=== PATIENT | male | born 1960 | race Caucasian/White ===

== ENCOUNTER → 2019-07-14 08:47 | Outpatient (BNVA) | payer BC, SELFPAY | PROVIDERS: Family Provider Nurse Practitioner Family; PCP Family Medicine; Visit Provider Urology | DX: N20.9 Urinary calculus, unspecified (principal); N39.9 Disorder of urinary system, unspecified; N40.1 Benign prostatic hyperplasia with lower urinary tract symptoms | CPT/HCPCS: 81001 ==

== ENCOUNTER → 2020-01-13 08:35 | Outpatient (BNVA) | payer BC, SELFPAY | PROVIDERS: Family Provider Nurse Practitioner Family; PCP Family Medicine; Visit Provider Urology | DX: N40.1 Benign prostatic hyperplasia with lower urinary tract symptoms (principal) | CPT/HCPCS: 81001 ==

== ENCOUNTER → 2020-01-24 16:37 | Outpatient (BNVA) | payer BC, SELFPAY | PROVIDERS: Family Provider Nurse Practitioner Family; PCP Family Medicine; Visit Provider Family Medicine | DX: E78.2 Mixed hyperlipidemia (principal); M10.9 Gout, unspecified | CPT/HCPCS: 80053; 80061; 84550; 85025 ==

== ENCOUNTER 2020-05-12 10:00 | Outpatient (CLI) | payer BC, SELFPAY ==
--- NOTE | 2020-05-12 10:45 | FL_ITS ---
WS: [id number] UPPER GI WITH AIR TECHNICAL: Double contrast upper GI with thin and thick barium FLUOROSCOPY TIME: 4.0 minutes CLINICAL INFORMATION: K21.00 - Gastro-esophageal reflux disease with esophagitis, without bleeding COMPARISON: None. FINDINGS: Swallowing: Normal. Esophagus: Moderate dysmotility with delayed emptying. Filling of the fundoplication wrap suggests pa rtial breakdown or loosening with mild slippage and small recurrent hiatal hernia above the diaphragm . No evidence of esophageal stricture or mass. Gastroesophageal reflux: Mild reflux to the mid and distal esophagus in the supine position Stomach: Double contrast stomach is normal. Normal stomach emptying. Duodenum: Normal. Other findings: None. FL/FL upper GI w air* [id number] IMPRESSION: 1. Moderate esophageal dysmotility with delayed emptying. Mild reflux esophagi tis in the distal esophagus 2. Barium contrast filling of the fundoplication wrap suggests partial breakdo wn or loosening with mild slippage and small recurrent hiatal hernia above the diaphragm. This can be further evaluated with CT abdomen 3. No evidence of high-grade esophageal stricture or mass. 4. Mild reflux is present into the mid and distal esophagus in the supine posi tion
== END 2020-05-12 10:01 | disposition home or self-care (01) ==
LOC: RADWPI 10:06
PROVIDERS: PCP Family Medicine; Visit Provider Surgery
DX: K21.00 Gastro-esophageal reflux disease with esophagitis, without bleeding (principal)
CPT/HCPCS: 74246

== ENCOUNTER → 2020-06-02 13:55 | Outpatient (BNVA) | payer BC, SELFPAY | PROVIDERS: PCP Family Medicine; Visit Provider Surgery | DX: Z01.812 Encounter for preprocedural laboratory examination (principal); Z20.828 Contact with and (suspected) exposure to other viral communicable diseases | CPT/HCPCS: 87635 ==

== ENCOUNTER 2020-06-07 09:19 | Day surgery (SDC) | payer BC, SELFPAY ==
[2020-06-05 13:28] VITALS: BMI 27.1
[2020-06-07 10:33] VITALS: BP 113/80; PULSE 63; RESP 18; TEMP 36.4; O2SAT 98
--- NOTE | 2020-06-07 10:35 | W.PM.OPSUD ---
Surgery/Procedure H&P Update DATE OF PROCEDURE: June 07, 2020 DATE H&P PERFORMED: 05/18/20 H&P UPDATE INFORMATION: I have reviewed H&P completed within last 30 days, I have examined patient prior to procedure and No changes to prior documentation PREOP DIAGNOSIS: Epigastric pain PRIMARY INDICATION FOR PROCEDURE: The same PLANNED PROCEDURE: Operation Date: 06/07/20 10:45 Proposed Procedures p EGD 25053 k21.00(Not Applicable) - Andres Hernandez MD
[2020-06-07] MEDS: sodium chloride 0.9% 1,000 ML 30 ML IV (10:37)
--- NOTE | 2020-06-07 10:46 | P.ANESASSM_ITS ---
Pre-Anesthetic Assessment Pre-Anesthetic Assessment: Height/Weight: Height 1.83 m Weight 90.718 kg Temp Pulse Resp BP Pulse Ox 97.5 F L 63 18 113/80 98 06/07/20 10:33 06/07/20 10:33 06/07/20 10:33 06/07/20 10:33 06/07/20 10:33 Preop Diagnosis: Epigastric pain Proposed Procedure: Operation Date: 06/07/20 10:45 Proposed Procedures p EGD 37517 k21.00(Not Applicable) - Andres Hernandez MD Familial anesthetic complications: Hypothermia after a laparoscopic surgery, however has done fine subsequently (dontae) Was Beta Mart taken within 24 hours: N/A Last intake: Intake Last Liquid Date 06/06/20 Last Liquid Time 21:00 Last Solid Date 06/06/20 Last Solid Time 18:00 Social: Social History: No alcohol and No tobacco Comment: former smoker - quit 1992 Exam: Pre-Anes Outpt Exam: alert, oriented x 3, clear to auscultation bilaterally and regular rate & rhythm Airway: Cervical ROM: WNL MP: 3 Dentition: Full Additional comments: rogel Pulmonary: Pulmonary: COPD CV/HEM: CV/HEM: CHF and HTN Comments: very active - moves [place] Hx states CHF but he states he had an echo and his PCP told him his heart was stronger than a 40 year old's GI: GI: GERD Comments: kailey fundoplication Metabolic: Metabolic: Hyperlipidemia Neuropsych: Neuropsych: Anxiety Anesthetic Plan: ASA status: 3 Anesthesia: MAC Risk of > 500 ml blood loss (7ml/kg in children): No Meds/Allergies Current Medications: Current Medications Generic Name Dose Route Start Last Admin Trade Name Freq PRN Reason Stop Dose Admin Sodium Chloride 1,000 mls @ 30 ml s/hr 06/07/20 10:15 06/07/20 10:37 Sodium Chloride 0.9% IV 30 mls/hr .Q24H IRASEMA Administration PFSH Anesthesia PFSH: Medical History BPH NOS w ur obs/LUTS CHF (congestive heart failure) Chronic obstructive pulmonary disease, unspecified Gastro-esophageal reflux disease without esophagitis Generalized anxiety disorder Hyperlipidemia, unspecified Incomplete emptying of bladder Surgical History H/O bladder repair surgery Uro-Lift H/O knee surgery History of back surgery DISC REPLACED WITH PROSTHETIC History of left inguinal hernia repair with esophagus repair History of repair of hiatal hernia Hx of tonsillectomy Status post laparoscopic Kailey fundoplication Family History Father Drug abuse Alcoholism /alcohol abuse Mother Pneumonia Alzheimer disease Other CAD (coronary artery disease) Hypertension Denies family history of Diabetes Anesthesia complication Bleeding disorder Cancer Social History Smoking and tobacco status: former smoker Quit status (tobacco): has quit using tobacco Year quit tobacco: 1992 Former quit date comment: smoked approx 15 yrs Second hand smoke exposure: No Alcohol intake: current Alcohol intake frequency: few times a month Lives independently: Yes Household members: spouse Marital status: Current occupational status: employed 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
--- NOTE | 2020-06-07 11:55 | ANE.PACU2 ---
Inpatient post-anesthesia follow up: Airway intact: Yes Vital signs: Temperature 97.5 F Pulse Rate 63 Respiratory Rate 18 Blood Pressure 113/80 Pulse Oximetry 98 Oxygen Delivery Me thod Room Air Oxygen Flow Rate Fraction of Inspir ed Oxygen Hydration adequate: Yes Nausea and vomiting: No Pain level: 1 Mental status: Baseline
[2020-06-07 12:02] VITALS: BP 115/75; PULSE 63; RESP 16; TEMP 36.7; O2SAT 95
[2020-06-08 09:02] LABS: H. Pylori / CLO Test Negative
== END 2020-06-07 12:42 | disposition home or self-care (01) ==
PROVIDERS: PCP Family Medicine; Visit Provider Surgery
PROC: 0DJ08ZZ Inspection of Upper Intestinal Tract, Via Natural or Artificial Opening Endoscopic (ICD-10-PCS; CPT 43235; principal; 2020-06-07 10:45)
DX: R10.13 Epigastric pain (principal); K21.9 Gastro-esophageal reflux disease without esophagitis; K29.70 Gastritis, unspecified, without bleeding; K25.3 Acute gastric ulcer without hemorrhage or perforation; Z87.891 Personal history of nicotine dependence; J44.9 Chronic obstructive pulmonary disease, unspecified; I11.0 Hypertensive heart disease with heart failure; I50.9 Heart failure, unspecified; E78.5 Hyperlipidemia, unspecified; F41.9 Anxiety disorder, unspecified; N40.1 Benign prostatic hyperplasia with lower urinary tract symptoms; N13.8 Other obstructive and reflux uropathy
CPT/HCPCS: 12345; 43239; 87077; J2704; J7030

== ENCOUNTER 2020-06-12 07:38 | Outpatient (CLI) | payer BC, SELFPAY ==
--- NOTE | 2020-06-12 08:00 | US_ITS ---
WS: [id number] ULTRASOUND ABDOMEN LIMITED CLINICAL INFORMATION: R10.11 - Right upper quadrant pain COMPARISON: None. FINDINGS: Liver Size: Enlarged Craniocaudal length: 16.8 cm. Echogenicity: Normal. Surface nodularity: None. Mass (size and location): None. Bile ducts Intrahepatic ducts: Normal. Common bile duct diameter: 0.3 cm. Gallbladder Normal. Gallstones: None. Gallbladder sludge: None. Gallbladder wall thickening: None. Pericholecystic fluid: None. Sonographic Walker sign: Absent. Pancreas Not well visualized Right kidney: Normal. Hydronephrosis: None. Size: 12.7 cm x 5.1 cm x 5.2 cm. Abdominal aorta and IVC Visualized portions are normal. Ascites: None. US/US gall bladder [id number] IMPRESSION: 1. Mild hepatomegaly. No intrahepatic biliary ductal dilatation. 2. Normal gallbladder. 3. No hydronephrosis in right kidney.
== END 2020-06-12 07:39 | disposition home or self-care (01) ==
PROVIDERS: PCP Family Medicine; Visit Provider Surgery
DX: R10.11 Right upper quadrant pain (principal); R16.0 Hepatomegaly, not elsewhere classified
CPT/HCPCS: 76705

== ENCOUNTER 2020-07-05 09:39 | Outpatient (CLI) | payer BC, SELFPAY ==
--- NOTE | 2020-07-05 09:44 | NM_ITS ---
WS: [id number] NUCLEAR MEDICINE HIDA SCAN WITH GALLBLADDER EJECTION FRACTION HISTORY: RUQ PAIN COMPARISON: Gallbladder ultrasound 06/12/2020 TECHNIQUE: The patient was intravenously injected with 7.9 mCi of TC99m Mebrofenin. Immediate imaging over the right upper quadrant was followed by 5 minute image and additional images for a total of 60 minutes. Normal uptake of radiotracer throughout the liver. Activity identified in the gallbladder at 30 minutes and well distended by 60 minutes. Activity in the proximal small bowel was seen by 15 minutes. Good washout of the radiotracer from the liver by 60 minutes. The patient then drank 8 ounces of Ensure Plus. Ejection fraction at 60 minutes was 69%. Normal GB ej ection fraction is 35-75%. Post fatty meal symptoms: None. NM/NM hepatobiliary w phar* [id number] IMPRESSION: 1. Normal HIDA scan. 2. Normal gallbladder ejection fraction.
== END 2020-07-05 09:40 | disposition home or self-care (01) ==
LOC: NM 09:40
PROVIDERS: PCP Family Medicine; Visit Provider Surgery
DX: R10.11 Right upper quadrant pain (principal)
CPT/HCPCS: 78227; A9537

== ENCOUNTER → 2020-07-21 13:56 | Outpatient (BNVA) | payer BC, SELFPAY | PROVIDERS: PCP Family Medicine; Visit Provider Surgery | DX: K21.00 Gastro-esophageal reflux disease with esophagitis, without bleeding (principal) | CPT/HCPCS: 87635 ==

== ENCOUNTER 2020-07-26 06:01 | Day surgery (SDC) | payer BC, SELFPAY ==
[2020-07-24 11:32] VITALS: BMI 26.9
[2020-07-26 06:22] VITALS: BP 121/75; PULSE 66; RESP 18; TEMP 36.1; O2SAT 98
--- NOTE | 2020-07-26 06:45 | ANES.PREANE2 ---
Pre-Anesthetic Assessment Pre-Anesthetic Assessment: Height/Weight: Height 1.83 m Weight 90.265 kg Temp Pulse Resp BP Pulse Ox 97 F L 66 18 121/75 98 07/26/20 06:22 07/26/20 06:22 07/26/20 06:22 07/26/20 06:22 07/26/20 06:22 Preop Diagnosis: Gastric ulcer (recheck) Proposed Procedure: Operation Date: 07/26/20 07:00 Proposed Procedures p EGD 15513 K25.9(Not Applicable) - Andres Hernandez MD Was Beta Mart taken within 24 hours: N/A Last intake: Intake Last Liquid Date 07/25/20 Last Liquid Time 22:30 Last Solid Date 07/25/20 Last Solid Time 21:00 Social: Social History: Tobacco Packs per day: quit 20 years ago Exam: Pre-Anes Outpt Exam: alert, oriented x 3, clear to auscultation bilaterally and regular rate & rhythm Airway: Submandibular: WNL Cervical ROM: WNL MP: 2 History/ROS: No significant history except as noted Pulmonary: Pulmonary: COPD (regularly inhaler use ) CV/HEM: CV/HEM: HTN : Comments: lasix for leg swelling Hepatic: Hepatic: None reported GI: GI: GERD Metabolic: Metabolic: None reported Musc/skel: Musc/skel: Lower Back Pain and OA/DJD (back surgery x3) Neuropsych: Neuropsych: Anxiety Anesthetic Plan: ASA status: 2 Anesthesia: Anesthesia Evaluation and MAC Risk of > 500 ml blood loss (7ml/kg in children): No PFSH Anesthesia PFSH: Medical History BPH NOS w ur obs/LUTS CHF (congestive heart failure) Chronic obstructive pulmonary disease, unspecified Gastro-esophageal reflux disease without esophagitis Generalized anxiety disorder Hyperlipidemia, unspecified Incomplete emptying of bladder Surgical History H/O bladder repair surgery Uro-Lift H/O knee surgery History of back surgery DISC REPLACED WITH PROSTHETIC History of left inguinal hernia repair with esophagus repair History of repair of hiatal hernia Hx of tonsillectomy Status post laparoscopic Kailey fundoplication Family History Father Drug abuse Alcoholism /alcohol abuse Mother Pneumonia Alzheimer disease Other CAD (coronary artery disease) Hypertension Denies family history of Diabetes Anesthesia complication Bleeding disorder Cancer Social History Smoking and tobacco status: former smoker Quit status (tobacco): has quit using tobacco Year quit tobacco: 1992 Former quit date comment: smoked approx 15 yrs Second hand smoke exposure: No Alcohol intake: current Alcohol intake frequency: few times a month Lives independently: Yes Household members: spouse Marital status: Current occupational status: employed 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
--- NOTE | 2020-07-26 06:52 | W.PM.OPSFHP ---
Same Day Surgery H&P Indication for Procedure/HPI DATE OF PROCEDURE: July 26, 2020 CHIEF COMPLAINT/INDICATIONFOR SURGICAL PROCEDURE: I feel a whole lot better PREOP DIAGNOSIS: Gastric ulcer PLANNED PROCEDRUE: Operation Date: 07/26/20 07:00 Proposed Procedures p EGD 60497 K25.9(Not Applicable) - Andres Hernandez MD Patient comes today status post EGD and was found to have GERD gastritis and acute gastric ulcer, partially intact wrap status post Kailey fundoplication patient continues to be on PPI therapy and he does report to me that he still have the fatty dyspepsia. Ultrasound of the gallbladder was done reported as normal. Interim history 07/26/2020 Patient comes today for a repeat diagnostic EGD to make sure that the gastric ulcer is healed completely. ROS All systems have been reviewed negative except as per the above or per problem list Medications/Allergies* Home Medications Medication Instructions Recorded Confirmed Type tramadol 50 mg tablet 50 mg PO BID PRN 06/25/19 07/26/20 History humidifiers #1 each 07/14/19 07/26/20 History azelastine 137 mcg (0.1 %) nasal 2 spray INTRANASAL BID 01/24/20 07/26/20 History spray aerosol levocetirizine 5 mg tablet 5 mg PO DAILY 05/04/20 07/26/20 History multivitamin 1 tab PO DAILY 05/04/20 07/26/20 History Calcium 500 500 mg PO DAILY 06/05/20 07/26/20 History Allergies/Adverse Reactions Allergy/AdvReac Type Severity Reaction Status Date / Time banana Allergy Unknown Unknown Verified 07/26/20 06:53 hydrocodone Allergy Unknown Unknown Verified 07/26/20 06:53 latex Allergy Unknown Unknown Verified 07/26/20 06:53 Penicillins Allergy Unknown Unknown Verified 07/26/20 06:53 pollen extracts Allergy Unknown Unknown Verified 07/26/20 06:53 prednisone Allergy Unknown Unknown Verified 07/26/20 06:53 Sulfa (Sulfonamide Allergy Unknown Unknown Verified 07/26/20 06:53 Antibiotics) Pertinent History/Comorbid Conditions* Medical History (Updated 05/18/20 @ 11:25 by Andres Hernandez MD) BPH NOS w ur obs/LUTS CHF (congestive heart failure) Chronic obstructive pulmonary disease, unspecified Gastro-esophageal reflux disease without esophagitis Generalized anxiety disorder Hyperlipidemia, unspecified Incomplete emptying of bladder Surgical History (Updated 05/05/20 @ 15:56 by Andres Hernandez MD) H/O bladder repair surgery Uro-Lift H/O knee surgery History of back surgery DISC REPLACED WITH PROSTHETIC History of left inguinal hernia repair with esophagus repair History of repair of hiatal hernia Hx of tonsillectomy Status post laparoscopic Kailey fundoplication Family History (Updated 05/04/20 @ 15:21 by Maria Eugenia Bills LPN) Drug abuse Father CAD (coronary artery disease) Alcoholism /alcohol abuse Father Alzheimer disease Mother Hypertension Pneumonia Mother Denies family history of Diabetes Anesthesia complication Bleeding disorder Cancer Social History Smoking and tobacco status: former smoker Quit status (tobacco): has quit using tobacco Year quit tobacco: 1992 Former quit date comment: smoked approx 15 yrs Second hand smoke exposure: No Alcohol intake: current Alcohol intake frequency: few times a month Lives independently: Yes Household members: spouse Marital status: Current occupational status: employed 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 I discussed with the patient in detail the risk,benefits,alternatives and indications.The risk of aspiration, bleeding, soft tissue injury, perforation of the stomach/esophagus and other potential concomitant complications were explained to the patient in details,aslo the potential need for Thoracic and or Abdominal surgery to repair any complications.The patient understood this well and did agree to proceed. Rationale was carefully and clearly discussed with the patient.Appropriate informed consent have been reviewed and signed All questions have been answered and all concerns have been addressed to patient's satisfaction. 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
[2020-07-26] MEDS: sodium chloride 0.9% 1,000 ML 30 ML IV (07:00)
[2020-07-26 07:13] VITALS: BP 90/53; PULSE 60; RESP 18; TEMP 36.2; O2SAT 97
[2020-07-26 07:28] VITALS: BP 108/68; PULSE 72; RESP 18; TEMP 36.3; O2SAT 98
--- NOTE | 2020-07-26 10:11 | ANE.PACU2 ---
Inpatient post-anesthesia follow up: Airway intact: Yes Vital signs: Temperature 97.4 F Pulse Rate 72 Respiratory Rate 18 Blood Pressure 108/68 Pulse Oximetry 98 Oxygen Delivery Me thod Room Air Oxygen Flow Rate Fraction of Inspir ed Oxygen Hydration adequate: Yes Nausea and vomiting: No Pain level: 1 Mental status: Baseline
[2020-07-27 06:45] LABS: H. Pylori / CLO Test Negative
== END 2020-07-26 07:45 | disposition home or self-care (01) ==
PROVIDERS: PCP Family Medicine; Visit Provider Surgery
PROC: 0DJ08ZZ Inspection of Upper Intestinal Tract, Via Natural or Artificial Opening Endoscopic (ICD-10-PCS; CPT 43235; principal; 2020-07-26 07:00)
DX: Z87.11 Personal history of peptic ulcer disease (principal); K21.9 Gastro-esophageal reflux disease without esophagitis; K29.70 Gastritis, unspecified, without bleeding; J44.9 Chronic obstructive pulmonary disease, unspecified; I10 Essential (primary) hypertension; M19.90 Unspecified osteoarthritis, unspecified site; F41.9 Anxiety disorder, unspecified; N40.1 Benign prostatic hyperplasia with lower urinary tract symptoms; N13.8 Other obstructive and reflux uropathy; E78.5 Hyperlipidemia, unspecified; Z87.891 Personal history of nicotine dependence
CPT/HCPCS: 43239; 87077; J2704; J7030

== ENCOUNTER → 2020-08-15 09:13 | Outpatient (BNVA) | payer BC, SELFPAY | PROVIDERS: PCP Family Medicine; Visit Provider Family Medicine | DX: E78.2 Mixed hyperlipidemia (principal); I10 Essential (primary) hypertension | CPT/HCPCS: 80053; 80061; 84443; 85025 ==

== ENCOUNTER → 2021-01-11 08:55 | Outpatient (BNVA) | payer BC, SELFPAY | PROVIDERS: PCP Family Medicine; Visit Provider Urology | DX: Z12.5 Encounter for screening for malignant neoplasm of prostate (principal); N40.1 Benign prostatic hyperplasia with lower urinary tract symptoms | CPT/HCPCS: 81003; G0103 ==

== ENCOUNTER → 2021-02-16 09:58 | Outpatient (BNVA) | payer BC, SELFPAY | PROVIDERS: PCP Family Medicine; Visit Provider Family Medicine | DX: K21.9 Gastro-esophageal reflux disease without esophagitis (principal); I10 Essential (primary) hypertension; G47.00 Insomnia, unspecified; F41.1 Generalized anxiety disorder; E78.5 Hyperlipidemia, unspecified | CPT/HCPCS: 80053; 80061; 84443; 85025 ==

== ENCOUNTER 2021-05-28 17:14 | Emergency (ER) | payer BC, SELFPAY ==
[2021-05-28 17:48] VITALS: PULSE 89; RESP 18; O2SAT 95; BMI 27.6
--- NOTE | 2021-05-28 17:59 | ED_ITS ---
HPI - Back Pain/Injury General: Chief Complaint: Back Pain/Injury Stated Complaint: R BACK PAIN/SOB/FELL OFF HORSE Time Seen by Provider: 05/28/21 17:58 History of Present Illness: HPI Narrative: Patient is a 61-year-old male comes to the ED with right shoulder and right rib pain after fall. Patient has a history of right rib fractures several years ago. Injury occurred just prior to arrival. Patient was on a horse and was bucked off and landed on the right side of his body. He has pleuritic right rib pain along with right shoulder pain. he rates his pain currently an 8 out of 10. Patient says the horse also stepped on his right lower leg as well. He is able to ambulate on right leg but does cause some pain. Denies any head trauma, loss of consciousness or headache. Denies any shortness of breath, nausea/vomiting. Associated symptoms: Deny abdominal pain, chills, dysuria, fatigue, fever(s), hematuria, nausea or vomiting Review of Systems Const: Denies: fever(s), chills or fatigue Eyes: Denies: change in vision or eye discomfort ENMT: Denies: throat pain, odynophagia, nasal discharge or nasal congestion Card: Denies: chest pain, palpitations, edema, swelling of feet/ankles, dyspnea on exertion or orthopnea Resp: Reports: pain on inspiration (right rib); Denies: dyspnea, productive cough or non-productive cough GI: Denies: abdominal pain, nausea, vomiting, diarrhea, constipation or hematochezia : Denies: flank pain, difficulty urinating, dysuria or hematuria Musc: Reports: extremity pain (right shoulder and right lower leg); Denies: neck pain, back pain or extremity swelling Skin/Breast: Denies: rash or new lesions Neuro: Denies: headache(s), numbness in extremities or weakness in extremities PFS ED PFSH: Medical History BPH NOS w ur obs/LUTS Chronic obstructive pulmonary disease, unspecified Gastric ulcer Gastro-esophageal reflux disease without esophagitis Generalized anxiety disorder GERD with esophagitis Hyperlipidemia, unspecified Incomplete emptying of bladder Right upper quadrant pain Surgical History H/O bladder repair surgery Uro-Lift H/O circumcision H/O colonoscopy 2016 H/O esophagogastroduodenoscopy 2001 H/O knee surgery H/O laparoscopy History of back surgery DISC REPLACED WITH PROSTHETIC History of left inguinal hernia repair with esophagus repair History of repair of hiatal hernia Hx of tonsillectomy Status post laparoscopic Kailey fundoplication Family History Father Drug abuse Alcoholism /alcohol abuse Mother Pneumonia Alzheimer disease Other CAD (coronary artery disease) Hypertension Denies family history of Diabetes Anesthesia complication Bleeding disorder Cancer Social History Smoking and tobacco status: never smoked Quit status (tobacco): has quit using tobacco Year quit tobacco: 1992 Former quit date comment: smoked approx 15 yrs Second hand smoke exposure: No Alcohol intake: current Alcohol intake frequency: few times a month Lives independently: Yes Household members: spouse Marital status: Current occupational status: employed 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 History of recent travel: No Current gender identity: Male Physical Exam Const: COMMON NORMALS: patient oriented x3, healthy appearing and alert GENERAL APPEARANCE: cooperative and in distress (pt appeared in some pain) HENMT: COMMON NORMALS: normocephalic HEAD & SCALP: normocephalic MOUTH: Normal oral and palatal mucosa present THROAT: posterior oropharynx normal and uvula midline Eye: COMMON NORMALS: Equal, round and reactive pupils present PUPIL: Yes Equal, round and reactive pupils present Neck/C-Spine: COMMON NORMALS: full ROM and supple GENERAL: Yes normal visual inspection CERVICAL SPINE: Yes cervical ROM normal, No pain with cervical ROM, No Cervical spine tenderness, No Paracervical muscle tenderness and No Trapezius muscle tenderness Chest: CHEST: Yes tenderness rib right posterior-axillary line involving the 5th rib, involving the 6th rib and involving the 7th rib Resp: COMMON NORMALS: normal respiratory effort, No retractions, No use of accessory muscles and clear to auscultation bilaterally AUSCULTATION: clear to auscultation bilaterally Cardio: COMMON NORMALS: regular rate, regular rhythm, S1 normal heart sound present, S2 normal heart sound present, No gallops present (Cardio), No clicks present (Cardio), No murmurs present (Cardio) and Peripheral pulses 2+ throughout RATE: regular rate RHYTHM: regular rhythm HEART SOUNDS: S1 normal heart sound present and S2 normal heart sound present PERIPHERAL PULSES: Peripheral pulses 2+ throughout GI: COMMON NORMALS: Normal to inspection, nondistended, normoactive bowel sounds present, Soft to palpation, non-tender and no masses PALPATION: Yes Soft to palpation : COMMON NORMALS: Yes no CVA tenderness BLADDER/KIDNEY EXAM: Yes no CVA tenderness Back/Pelvis: COMMON NORMALS: no CVA tenderness Extremity: GENERAL: Yes normal exam except as noted RIGHT UPPER EXTREMITY: Yes shoulder joint Right shoulder: Yes Right shoulder joint inspection exam, Yes palpation, Yes Right shoulder joint ROM exam (limited to abduction due to pain) and Yes Right shoulder joint neurovascular exam (intact) Neuro: COMMON NORMALS: patient oriented x3 and moves all extremities SENSORIUM/ORIENTATION: Yes alert Skin: GENERAL SKIN EXAM: dry skin Course 2 Vital Signs: Vital signs: Vital Signs Pulse Rate 89 05/28/21 17:48 Respiratory Rate 18 05/28/21 17:48 Pulse Oximetry 95 05/28/21 17:48 MDM - Back Pain/Injury MDM Narrative: Medical decision making narrative: Patient is a 61-year-old male comes to the ED with right rib and right shoulder pain. Patient was bucked off a horse and landed on right side. He also reports some mild right lower leg pain and states that horse stepped on right lower leg after he fell. He is able to ambulate on right leg with minimal pain. Denies any head trauma, loss of consciousness, shortness of breath or any headache. Vitals stable with O2 saturation level 95% on room air. Exam shows some palpable posterior right rib tenderness. Pain in right shoulder with abduction of arm. Rest of exam is benign. X-ray of right tib-fib showed no acute fractures or findings, x-ray of right shoulder showed no acute fractures or findings. X-ray of right ribs showed 1 acute nondisplaced fracture and to other rib fractures and undetermined if there old or new, pending official radiology report. Patient diagnosed with an injury of right shoulder and multiple rib fractures and was discharged home with a prescription for hydrocodone for pain and incentive spirometer to help with breathing. Patient was told to follow-up with their PCP in 5 to 7 days for reevaluation. Return to ED precautions given. Patient understood and agree with plan. Imaging Data^: Xray Ortho: Attestation: I personally reviewed and interpreted this imaging study as follows: Radiologist's impression: [facility] [address] [place] [address] XRay Report Signed Patient: Eulogio Linton Unit #: [id number] : 1960 Age/Sex: 61 / M ADM Date: 05/28/21 Loc: ER Room/Bed: Attending Dr: Ordering Provider/Ordering MD: Dewayne Bethea Date of Service: 05/28/21 Procedure(s): XR tibia fibula RT 2V 36548 Accession Number(s): [id number] Report Number: [id number] PROCEDURE INFORMATION: Exam: XR Right Tibia and Fibula Exam date and time: 05/28/2021 6:07 PM Age: 61 years old Clinical indication: Pain; Lower leg; Right; Additional info: Horse stepped on leg TECHNIQUE: Imaging protocol: XR Right tibia and fibula. Views: 2 views. COMPARISON: No relevant prior studies available. FINDINGS: Bones/joints: Tibia and fibula are intact. Negative for fracture. Soft tissues: Normal. XR/XR tibia fibula RT 2V 75048 IMPRESSION: No acute findings. Dictated By: Alen Singleton DO Signed By: Alen Singleton DO Signed Date/Time: 05/28/211939 DD/ 06 CXR: Attestation: I personally reviewed and interpreted this imaging study as fol lows: My impression: Right rib x-ray?1 nondisplaced rib fractures noted. 2 other possible rib fractures seen but possibly from older injury. No other acute fin dings. Pending final radiology report. Discharge Plan Discharge Patient Disposition: Home Clinical Impression: Multiple rib fractures Qualifiers: Encounter type: initial encounter Fracture type: closed Laterality: right Qualified Code(s): S22.41XA - Multiple fractures of ribs, right side, initial encounter for closed fracture Injury of shoulder, right Qualifiers: Encounter type: initial encounter Qualified Code(s): S49.91XA - Unspecified injury of right shoulder and upper arm, initial encounter Condition: Stable Prescriptions: No Action acetaminophen 500 mg tablet 500 mg PO Q6H PRNRF: 0 levocetirizine [Xyzal] 5 mg tablet 5 mg PO DAILY RF: 0 multivitamin Tablet 1 tab PO DAILY RF: 0 albuterol sulfate 90 mcg/actuation HFA aerosol inhaler 2 inh inhalation Q6H PRN (Reason: shortness of breath or wheezing) Qty: 8.5 RF: 4 azelastine 137 mcg (0.1 %) aerosol,spray 2 spray INTRANASAL BID Qty: 30 RF: 3 lisinopril 5 mg tablet See Rx Instructions .ROUTE .COMPLEX Qty: 30 RF: 2 montelukast [Singulair] 10 mg tablet 10 mg PO DAILY Qty: 90 RF: 1 tramadol 50 mg tablet 50 mg PO TID PRN (Reason: pain) Qty: 90 RF: 1 colchicine [Colcrys] 0.6 mg tablet See Rx Instructions .ROUTE .COMPLEX Qty: 3 RF: 3 potassium chloride [Klor-Con 10] 10 mEq tablet extended release See Rx Instructions .ROUTE .COMPLEX Qty: 60 RF: 2 omeprazole 40 mg capsule,delayed release(DR/EC) See Rx Instructions .ROUTE .COMPLEX Qty: 60 RF: 2 trazodone 50 mg tablet See Rx Instructions .ROUTE .COMPLEX Qty: 90 RF: 1 buspirone 10 mg tablet See Rx Instructions .ROUTE .COMPLEX Qty: 30 RF: 3 furosemide 40 mg tablet See Rx Instructions .ROUTE .COMPLEX Qty: 60 RF: 2 rosuvastatin 10 mg tablet See Rx Instructions .ROUTE .COMPLEX Qty: 90 RF: 0 Calcium 500 500 mg PO DAILY RF: 0 Discharge Orders: Discharge ED (Routine); Ordered 05/28/21 Ordered By: Dewayne Bethea Referrals: Kenya Roth MD [Primary Care Provider] - Discharge Diet: Regular Discharge Activity: Limit activity as instructed Patient Instructions: How to Use an Incentive Spirometer (ED), Rib Fracture (ED), Shoulder Pain (ED), Opioid Safety Activity Restrictions/Additional Instructions: Follow-up with medical provider as directed in 7 to 10 days reevaluation. Take medications as prescribed. Rest and limit any lifting or activity for the next several weeks until cleared by primary care physician. Use incentive spirometer multiple times throughout the day return to the ER or your medical provider if condition worsens or you experience any shortness of breath. please read and understand discharge instructions. Thank you for choosing [facility] for your healthcare needs today. Please realize this is an emergency room and that we are providing you with a medical screening exam and this may not be complete and all inclusive of all the testing and or work up that you may need to determine your ailment or severity of your illness. It is very important that you follow up as instructed or that you return to the Emergency Department should you have concerns or if your condition changes or worsens in any way. 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
--- NOTE | 2021-05-28 18:07 | XRR_ITS ---
PROCEDURE INFORMATION: Exam: XR Right Tibia and Fibula Exam date and time: 05/28/2021 6:07 PM Age: 61 years old Clinical indication: Pain; Lower leg; Right; Additional info: Horse stepped on leg TECHNIQUE: Imaging protocol: XR Right tibia and fibula. Views: 2 views. COMPARISON: No relevant prior studies available. FINDINGS: Bones/joints: Tibia and fibula are intact. Negative for fracture. Soft tissues: Normal. XR/XR tibia fibula RT 2V [id number] IMPRESSION: No acute findings.
--- NOTE | 2021-05-28 18:07 | XRR_ITS ---
PROCEDURE INFORMATION: Exam: XR Right Ribs with PA Chest Exam date and time: 05/28/2021 6:07 PM Age: 61 years old Clinical indication: Pain and injury or trauma; Fall; Rib area; Blunt trauma (contusions or hematomas); Chest wall pain; Right; Additional info: Rib pain TECHNIQUE: Imaging protocol: XR Right ribs with PA chest. Views: 3 views COMPARISON: NM hepatobiliary w phar* [id number] 07/05/2020 9:44 AM FINDINGS: Lungs: Unremarkable. No consolidation. Pleural spaces: Unremarkable. No pleural effusion. No pneumothorax. Heart/Mediastinum: Unremarkable. No cardiomegaly. Bones/joints: There is a mildly displaced fracture of the right lateral 6th and 7th ribs, and a nondisplaced fracture of the right lateral 8th rib. Degenerative changes of the spine seen. XR/XR ribs RT mn 3V w CXR1V [id number] IMPRESSION: Fractures of the right lateral 6th, 7th and 8th ribs.
--- NOTE | 2021-05-28 18:07 | XRR_ITS ---
PROCEDURE INFORMATION: Exam: XR Right Shoulder Exam date and time: 05/28/2021 6:07 PM Age: 61 years old Clinical indication: Pain and injury or trauma; Fall; Blunt trauma (contusions or hematomas); Shoulder; Right; Additional info: Shoulder pain after fall TECHNIQUE: Imaging protocol: XR Right shoulder. Views: 2 or more views. COMPARISON: No relevant prior studies available. FINDINGS: Bones/joints: There is a mildly displaced fracture of the right lateral 6th rib. No fracture or dislocation in the right shoulder. There is mild degenerative changes of the right acromioclavicular joint, manifested by joint space narrowing and periarticular osteophytes. Soft tissues: Normal. XR/XR shoulder RT min 2V* [id number] IMPRESSION: Mildly displaced fracture of the right lateral 6th rib.
[2021-05-28] MEDS: HYDROcodone-acetaminophen 7.5-325 mg Tablet 1 TAB PO (18:14)
== END 2021-05-28 20:31 | disposition home or self-care (01) ==
PROVIDERS: Emergency Provider Physician Assistant; PCP Family Medicine
DX: S49.91XA Unspecified injury of right shoulder and upper arm, initial encounter (principal); S22.41XA Multiple fractures of ribs, right side, initial encounter for closed fracture; E78.5 Hyperlipidemia, unspecified; Z87.891 Personal history of nicotine dependence; V80.010A Animal-rider injured by fall from or being thrown from horse in noncollision accident, initial encounter
CPT/HCPCS: 71101; 73030; 73590; 99283

== ENCOUNTER 2021-09-18 12:44 | Outpatient (CLI) | payer BC, SELFPAY ==
--- NOTE | 2021-09-18 12:45 | XR_ITS ---
WS: [id number] Exam: XR ribs RT 2V* [id number] Date/Time of Exam: 09/18/2021 12:49 PM Reason For Exam: S22.49XA - Multiple fractures of ribs, unspecified side, ... There are healing fractures involving the posterior lateral aspects of the right sixth, seventh and e ighth ribs. No other rib fractures are seen. The right lung is fully expanded and clear. No pleural o r pulmonary reactive changes. XR/XR ribs RT 2V* [id number] IMPRESSION: 1. Healing fractures of the posterior lateral right sixth, seventh and eighth r ibs. No pneumothorax.
== END 2021-09-18 12:45 | disposition home or self-care (01) ==
PROVIDERS: PCP Family Medicine; Visit Provider Family Medicine
DX: S22.41XA Multiple fractures of ribs, right side, initial encounter for closed fracture (principal); X58.XXXA Exposure to other specified factors, initial encounter
CPT/HCPCS: 71100

== ENCOUNTER → 2021-12-18 08:33 | Outpatient (BNVA) | payer BC, SELFPAY | PROVIDERS: PCP Family Medicine; Visit Provider Family Medicine | DX: M10.9 Gout, unspecified (principal); I10 Essential (primary) hypertension; E78.5 Hyperlipidemia, unspecified; Z12.5 Encounter for screening for malignant neoplasm of prostate | CPT/HCPCS: 80053; 80061; 84443; 84550; 85025; G0103 ==

== ENCOUNTER → 2022-02-14 08:52 | Outpatient (BNVA) | payer BC, SELFPAY | PROVIDERS: PCP Family Medicine; Visit Provider Urology | DX: Z12.5 Encounter for screening for malignant neoplasm of prostate (principal) | CPT/HCPCS: G0103 ==

== ENCOUNTER → 2022-02-19 08:58 | Outpatient (BNVA) | payer BC, SELFPAY | PROVIDERS: PCP Family Medicine; Visit Provider Urology | DX: N40.1 Benign prostatic hyperplasia with lower urinary tract symptoms (principal) | CPT/HCPCS: 81003 ==

== ENCOUNTER → 2022-05-08 14:28 | Outpatient (BNVA) | payer BC, SELFPAY | PROVIDERS: PCP Family Medicine; Visit Provider Nurse Practitioner Family | DX: R50.9 Fever, unspecified (principal); Z20.828 Contact with and (suspected) exposure to other viral communicable diseases | CPT/HCPCS: 87400; 87426 ==

== ENCOUNTER → 2022-05-20 14:58 | Outpatient (BNVA) | payer BC, SELFPAY | PROVIDERS: PCP Family Medicine; Visit Provider Nurse Practitioner Family | DX: R05.9 Cough, unspecified (principal); J06.9 Acute upper respiratory infection, unspecified; R97.20 Elevated prostate specific antigen [PSA] | CPT/HCPCS: 80053; G0103 ==

== ENCOUNTER → 2022-05-28 14:50 | Outpatient (BNVA) | payer BC, SELFPAY | PROVIDERS: PCP Family Medicine; Visit Provider Urology | DX: N40.1 Benign prostatic hyperplasia with lower urinary tract symptoms (principal); R31.0 Gross hematuria | CPT/HCPCS: 81003 ==

== ENCOUNTER → 2022-05-31 09:11 | Outpatient (BNVA) | payer BC, SELFPAY | PROVIDERS: PCP Family Medicine; Visit Provider Nurse Practitioner Family | DX: J44.9 Chronic obstructive pulmonary disease, unspecified (principal); R05.9 Cough, unspecified | CPT/HCPCS: 71046 ==

== ENCOUNTER → 2022-07-18 14:41 | Outpatient (BNVA) | payer BC, SELFPAY | PROVIDERS: PCP Family Medicine; Visit Provider Urology | DX: N40.1 Benign prostatic hyperplasia with lower urinary tract symptoms (principal); N41.9 Inflammatory disease of prostate, unspecified; R97.20 Elevated prostate specific antigen [PSA] | CPT/HCPCS: 81003 ==

== ENCOUNTER → 2022-08-29 09:14 | Outpatient (BNVA) | payer BC, SELFPAY | PROVIDERS: PCP Family Medicine; Visit Provider Urology | DX: R97.20 Elevated prostate specific antigen [PSA] (principal) | CPT/HCPCS: 84153 ==

== ENCOUNTER → 2022-09-05 15:43 | Outpatient (BNVA) | payer BC, SELFPAY | PROVIDERS: PCP Family Medicine; Visit Provider Urology | DX: N40.1 Benign prostatic hyperplasia with lower urinary tract symptoms (principal); N41.9 Inflammatory disease of prostate, unspecified; R97.20 Elevated prostate specific antigen [PSA] | CPT/HCPCS: 81003 ==

== ENCOUNTER 2022-09-18 07:31 | Day surgery (SDC) | payer BC, SELFPAY ==
[2022-09-16 11:16] VITALS: BMI 28.5
[2022-09-18 07:58] VITALS: BP 146/84; PULSE 85; RESP 18; TEMP 36.4; O2SAT 96
[2022-09-18] MEDS: sodium chloride 0.9% 1,000 ML 30 ML IV (08:06)
--- NOTE | 2022-09-18 08:36 | P.ANESASSM_ITS ---
Pre-Anesthetic Assessment Height/Weight: Height 1.83 m Weight 95.254 kg Temp Pulse Resp BP Pulse Ox O2 Del Method 97.5 F L 85 18 146/84 96 Room Air 09/18/22 07:58 09/18/22 07:58 09/18/22 07:58 09/18/22 07:58 09/18/22 07:58 09/18/22 07:58 Preop Diagnosis: Gastric ulcer Operation Date: 09/18/22 09:00 Proposed Procedures p [id number] Colon Z12.11(Not Applicable) - Kamlesh Mancini DO Familial anesthetic complications: none Was Beta Mart taken within 24 hours: N/A Was Clonidine taken within 24 hours: N/A Last intake: Intake Last Liquid Date 09/17/22 Last Liquid Time 23:45 Last Solid Date 09/16/22 Last Solid Time 19:00 Social Alcohol (3/week) and No tobacco (quit 30 years ago) Exam alert and oriented x 3 Airway Submandibular: within normal limits Cervical ROM: within normal limits Mallampati: Class II Dentition: full History/ROS No significant history except as noted Pulmonary Asthma CV/HEM Hypertension None reported Hepatic None reported GI None reported Metabolic Hyperlipidemia [facility] None reported Neuropsych None reported Anesthetic Plan ASA status: 3 Anesthesia: Anesthesia Evaluation and MAC Risk of > 500 ml blood loss (7ml/kg in children): No Medications/Allergies Home Medications Medication Instructions Recorded Confirmed Last Taken Type multivitamin 1 tab PO DAILY 05/04/20 09/16/22 09/17/22 History Calcium 500 500 mg PO DAILY 06/05/20 09/16/22 09/17/22 History colchicine 0.6 mg tablet (Colcrys) See Rx Instructions .Route 10/16/20 09/16/22 Unknown Rx .COMPLEX #3 tabs acetaminophen 500 mg tablet 500 mg PO Q6H PRN Pain 01/11/21 09/16/22 09/17/22 History azelastine 137 mcg (0.1 %) nasal 2 spray intranasal BID #30 mL 02/16/21 09/16/22 09/11/22 Rx spray aerosol polyethylene glycol 3350 17 4 g PO DAILY PRN Constipation 02/19/22 09/16/22 09/17/22 History gram/dose oral powder (Miralax) albuterol sulfate 90 mcg/actuation 2 inh inhalation Q6H PRN shortness 04/09/22 09/16/22 09/17/22 Rx aerosol inhaler of breath or wheezing #8.5 grams allopurinol 100 mg tablet See Rx Instructions .Route 04/09/22 09/16/22 09/17/22 Rx .COMPLEX #90 tabs trazodone 50 mg tablet See Rx Instructions .Route 04/09/22 09/16/22 09/17/22 Rx .COMPLEX #90 tabs promethazine-DM 6.25 mg-15 mg/5 mL 5 - 10 ml PO Q6H PRN cough #200 mL 05/20/22 09/16/22 Unknown Rx oral syrup finasteride 5 mg tablet 5 mg PO QDAY #90 tabs 05/28/22 09/16/22 09/17/22 Rx budesonide-formoterol HFA 160 2 puff inhalation BID #10.2 grams 05/31/22 09/16/22 09/16/22 Rx mcg-4.5 mcg/actuation aerosol inhaler (Symbicort) buspirone 10 mg tablet See Rx Instructions .Route 06/05/22 09/16/22 09/17/22 Rx .COMPLEX #30 tabs furosemide 40 mg tablet See Rx Instructions .Route 07/10/22 09/16/22 09/17/22 Rx .COMPLEX #180 tabs levocetirizine 5 mg tablet (Xyzal) 5 mg PO DAILY #90 tabs 07/10/22 09/16/22 09/17/22 Rx lisinopril 5 mg tablet See Rx Instructions .Route 07/10/22 09/16/22 09/17/22 Rx .COMPLEX #90 tabs montelukast 10 mg tablet See Rx Instructions .Route 07/10/22 09/16/22 09/17/22 Rx .COMPLEX #90 tabs omeprazole 40 mg capsule,delayed See Rx Instructions .Route 07/10/22 09/16/22 09/17/22 Rx release .COMPLEX #180 caps potassium chloride 10 mEq See Rx Instructions .Route 07/10/22 09/16/22 09/17/22 Rx tablet,extended release .COMPLEX #180 tabs rosuvastatin 10 mg tablet See Rx Instructions .Route 07/10/22 09/16/22 09/17/22 Rx .COMPLEX #90 tabs tamsulosin 0.4 mg capsule 0.4 mg PO BID #180 caps 07/10/22 09/16/22 09/17/22 Rx tramadol 50 mg tablet 50 mg PO TID #90 tabs 07/10/22 09/16/22 09/17/22 Rx levofloxacin 500 mg tablet 500 mg PO DAILY 10 days #30 tabs 07/18/22 09/16/22 09/17/22 Rx hydrocortisone 2.5 % topical cream 1 applic OR QID 10 days #30 grams 09/18/22 Unknown Rx with perineal applicator (Procto-Med HC) Allergies Allergy/AdvReac Type Severity Reaction Status Date / Time banana Allergy Unknown Unknown Verified 09/05/22 15:43 hydrocodone Allergy Unknown Unknown Verified 09/05/22 15:43 latex Allergy Unknown Unknown Verified 09/05/22 15:43 Penicillins Allergy Unknown Unknown Verified 09/05/22 15:43 pollen extracts Allergy Unknown Unknown Verified 09/05/22 15:43 prednisone Allergy Unknown Unknown Verified 09/05/22 15:43 Sulfa (Sulfonamide Allergy Unknown Unknown Verified 09/05/22 15:43 Antibiotics) Current Medications Generic Name Dose Route Start Last Admin Trade Name Freq PRN Reason Stop Dose Admin Sodium Chloride 1,000 mls @ 30 mls/hr 09/18/22 07:45 09/18/22 08:06 Sodium Chloride 0.9% IV 09/19/22 07:44 30 mls/hr .Q24H IRASEMA Administration PFSH Anesthesia Medical History BPH NOS w ur obs/LUTS Chronic obstructive pulmonary disease, unspecified Gastric ulcer Gastro-esophageal reflux disease without esophagitis Generalized anxiety disorder GERD with esophagitis Hyperlipidemia, unspecified Incomplete emptying of bladder Right upper quadrant pain Surgical History H/O bladder repair surgery Uro-Lift H/O circumcision H/O colonoscopy 2016 H/O esophagogastroduodenoscopy 2001 H/O knee surgery H/O laparoscopy History of back surgery DISC REPLACED WITH PROSTHETIC History of left inguinal hernia repair with esophagus repair History of repair of hiatal hernia Hx of tonsillectomy Status post laparoscopic Kailey fundoplication Family History Father Drug abuse Alcoholism /alcohol abuse Mother Pneumonia Alzheimer disease Other CAD (coronary artery disease) Hypertension Denies family history of Diabetes Anesthesia complication Bleeding disorder Cancer Social History Smoking and tobacco status: former smoker Quit status (tobacco): has quit using tobacco Year quit tobacco: 1992 Former quit date comment: smoked approx 15 yrs Second hand smoke exposure: No Alcohol intake: current Alcohol intake frequency: holidays/special occasions only Lives independently: Yes Household members: spouse Marital status: Current occupational status: employed 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
--- NOTE | 2022-09-18 09:46 | PM.HP ---
Providers/Chief Complaint Primary Care Provider: Kenya Roth MD Chief Complaint: Z12.11 History of Present Illness Eulogio Linton is a 62 year old male here for screening colonoscopy Medications/Allergies Home Medications Medication Instructions Recorded Confirmed Last Taken Type multivitamin 1 tab PO DAILY 05/04/20 09/16/22 09/17/22 History Calcium 500 500 mg PO DAILY 06/05/20 09/16/22 09/17/22 History colchicine 0.6 mg tablet (Colcrys) See Rx Instructions .Route 10/16/20 09/16/22 Unknown Rx .COMPLEX #3 tabs acetaminophen 500 mg tablet 500 mg PO Q6H PRN Pain 01/11/21 09/16/22 09/17/22 History azelastine 137 mcg (0.1 %) nasal 2 spray intranasal BID #30 mL 02/16/21 09/16/22 09/11/22 Rx spray aerosol polyethylene glycol 3350 17 4 g PO DAILY PRN Constipation 02/19/22 09/16/22 09/17/22 History gram/dose oral powder (Miralax) albuterol sulfate 90 mcg/actuation 2 inh inhalation Q6H PRN shortness 04/09/22 09/16/22 09/17/22 Rx aerosol inhaler of breath or wheezing #8.5 grams allopurinol 100 mg tablet See Rx Instructions .Route 04/09/22 09/16/22 09/17/22 Rx .COMPLEX #90 tabs trazodone 50 mg tablet See Rx Instructions .Route 04/09/22 09/16/22 09/17/22 Rx .COMPLEX #90 tabs promethazine-DM 6.25 mg-15 mg/5 mL 5 - 10 ml PO Q6H PRN cough #200 mL 05/20/22 09/16/22 Unknown Rx oral syrup finasteride 5 mg tablet 5 mg PO QDAY #90 tabs 05/28/22 09/16/22 09/17/22 Rx budesonide-formoterol HFA 160 2 puff inhalation BID #10.2 grams 05/31/22 09/16/22 09/16/22 Rx mcg-4.5 mcg/actuation aerosol inhaler (Symbicort) buspirone 10 mg tablet See Rx Instructions .Route 06/05/22 09/16/22 09/17/22 Rx .COMPLEX #30 tabs furosemide 40 mg tablet See Rx Instructions .Route 07/10/22 09/16/22 09/17/22 Rx .COMPLEX #180 tabs levocetirizine 5 mg tablet (Xyzal) 5 mg PO DAILY #90 tabs 07/10/22 09/16/22 09/17/22 Rx lisinopril 5 mg tablet See Rx Instructions .Route 07/10/22 09/16/22 09/17/22 Rx .COMPLEX #90 tabs montelukast 10 mg tablet See Rx Instructions .Route 07/10/22 09/16/22 09/17/22 Rx .COMPLEX #90 tabs omeprazole 40 mg capsule,delayed See Rx Instructions .Route 07/10/22 09/16/22 09/17/22 Rx release .COMPLEX #180 caps potassium chloride 10 mEq See Rx Instructions .Route 07/10/22 09/16/22 09/17/22 Rx tablet,extended release .COMPLEX #180 tabs rosuvastatin 10 mg tablet See Rx Instructions .Route 07/10/22 09/16/22 09/17/22 Rx .COMPLEX #90 tabs tamsulosin 0.4 mg capsule 0.4 mg PO BID #180 caps 07/10/22 09/16/22 09/17/22 Rx tramadol 50 mg tablet 50 mg PO TID #90 tabs 07/10/22 09/16/22 09/17/22 Rx levofloxacin 500 mg tablet 500 mg PO DAILY 10 days #30 tabs 07/18/22 09/16/22 09/17/22 Rx Allergies Allergy/AdvReac Type Severity Reaction Status Date / Time banana Allergy Unknown Unknown Verified 09/05/22 15:43 hydrocodone Allergy Unknown Unknown Verified 09/05/22 15:43 latex Allergy Unknown Unknown Verified 09/05/22 15:43 Penicillins Allergy Unknown Unknown Verified 09/05/22 15:43 pollen extracts Allergy Unknown Unknown Verified 09/05/22 15:43 prednisone Allergy Unknown Unknown Verified 09/05/22 15:43 Sulfa (Sulfonamide Allergy Unknown Unknown Verified 09/05/22 15:43 Antibiotics) PFSH Acute PFSH: Medical History BPH NOS w ur obs/LUTS Chronic obstructive pulmonary disease, unspecified Gastric ulcer Gastro-esophageal reflux disease without esophagitis Generalized anxiety disorder GERD with esophagitis Hyperlipidemia, unspecified Incomplete emptying of bladder Right upper quadrant pain Surgical History H/O bladder repair surgery Uro-Lift H/O circumcision H/O colonoscopy 2016 H/O esophagogastroduodenoscopy 2001 H/O knee surgery H/O laparoscopy History of back surgery DISC REPLACED WITH PROSTHETIC History of left inguinal hernia repair with esophagus repair History of repair of hiatal hernia Hx of tonsillectomy Status post laparoscopic Kailey fundoplication Family History Father Drug abuse Alcoholism /alcohol abuse Mother Pneumonia Alzheimer disease Other CAD (coronary artery disease) Hypertension Denies family history of Diabetes Anesthesia complication Bleeding disorder Cancer Social History Smoking and tobacco status: former smoker Quit status (tobacco): has quit using tobacco Year quit tobacco: 1992 Former quit date comment: smoked approx 15 yrs Second hand smoke exposure: No Alcohol intake: current Alcohol intake frequency: holidays/special occasions only Lives independently: Yes Household members: spouse Marital status: Current occupational status: employed Current occupation: [employer]er Current gender identity: Male Vitals/I&O/Wt Last Vital Signs Temp 97.5 F L 09/18/22 07:58 Pulse 85 09/18/22 07:58 Resp 18 09/18/22 07:58 BP 146/84 09/18/22 07:58 Pulse Ox 96 09/18/22 07:58 O2 Del Method Room Air 09/18/22 07:58 Weight last 48 hrs Weight 210 lb A&P Assessment and plan (1) Screening for colon cancer: Plan Colonoscopy The risks and benefits of the procedure, including bleeding, infection, intestinal perforation requiring surgery, missed lesion were explained to the patient. The patient is understanding of the risks and wishes to proceed. Attestations Medical Necessity Statement*: Home Coding Level of Care Code Acute Code for Chg Fwd Diagnoses Screening for colon cancer Z12.11
[2022-09-18 10:03] VITALS: BP 98/64; PULSE 73; RESP 18; TEMP 36.3; O2SAT 96
[2022-09-18 10:08] VITALS: BP 108/73; PULSE 74; RESP 18; O2SAT 96
[2022-09-18 10:18] VITALS: BP 127/81; PULSE 67; RESP 18; O2SAT 97
--- NOTE | 2022-09-18 11:59 | ANE.PACU2 ---
Inpatient post-anesthesia follow up: Airway intact: Yes Vital signs: Temperature 97.4 F Pulse Rate 67 Respiratory Rate 18 Blood Pressure 127/81 Pulse Oximetry 97 Oxygen Delivery Me thod Room Air Oxygen Flow Rate Fraction of Inspir ed Oxygen Hydration adequate: Yes Nausea and vomiting: No Pain level: 1 Mental status: Baseline
== END 2022-09-18 11:02 | disposition home or self-care (01) ==
PROVIDERS: PCP Family Medicine; Visit Provider Surgery
PROC: 0DJD8ZZ Inspection of Lower Intestinal Tract, Via Natural or Artificial Opening Endoscopic (ICD-10-PCS; CPT 45378; principal; 2022-09-18 09:00)
DX: Z86.010 Personal history of colon polyps (principal); Z12.11 Encounter for screening for malignant neoplasm of colon; Z87.891 Personal history of nicotine dependence; J45.909 Unspecified asthma, uncomplicated; I10 Essential (primary) hypertension; E78.5 Hyperlipidemia, unspecified; K21.9 Gastro-esophageal reflux disease without esophagitis; K64.8 Other hemorrhoids
CPT/HCPCS: 45378; J2704; J7030

== ENCOUNTER → 2022-09-30 10:38 | Outpatient (BNVA) | payer BC, SELFPAY | PROVIDERS: PCP Family Medicine; Visit Provider Family Medicine | DX: I10 Essential (primary) hypertension (principal); E78.5 Hyperlipidemia, unspecified; M10.9 Gout, unspecified | CPT/HCPCS: 80053; 80061; 84443; 84550; 85025 ==

== ENCOUNTER → 2022-11-20 11:20 | Outpatient (BNVA) | payer BC, SELFPAY | PROVIDERS: PCP Family Medicine; Visit Provider Urology | DX: N40.1 Benign prostatic hyperplasia with lower urinary tract symptoms (principal); N41.9 Inflammatory disease of prostate, unspecified; R97.20 Elevated prostate specific antigen [PSA] | CPT/HCPCS: 81003 ==

== ENCOUNTER → 2023-01-01 16:32 | Outpatient (BNVA) | payer BC, SELFPAY | PROVIDERS: PCP Family Medicine; Visit Provider Family Medicine | DX: N40.1 Benign prostatic hyperplasia with lower urinary tract symptoms (principal); E78.5 Hyperlipidemia, unspecified; F41.1 Generalized anxiety disorder; G89.29 Other chronic pain; I10 Essential (primary) hypertension; M10.9 Gout, unspecified; M54.9 Dorsalgia, unspecified; E78.2 Mixed hyperlipidemia | CPT/HCPCS: 80053; 80061; 84443; 84550; 85025 ==

== ENCOUNTER → 2023-04-01 10:12 | Outpatient (BNVA) | payer BC, SELFPAY | PROVIDERS: PCP Family Medicine; Visit Provider Family Medicine | DX: N40.1 Benign prostatic hyperplasia with lower urinary tract symptoms (principal); I10 Essential (primary) hypertension; E78.5 Hyperlipidemia, unspecified | CPT/HCPCS: 80053; 80061; 83036; 84443; 84550; 85025; G0103 ==

== ENCOUNTER → 2023-10-31 09:26 | Outpatient (BNVA) | payer BC, SELFPAY | PROVIDERS: PCP Family Medicine; Referring Provider Family Medicine; Visit Provider Family Medicine | DX: I10 Essential (primary) hypertension (principal); E78.2 Mixed hyperlipidemia; N40.1 Benign prostatic hyperplasia with lower urinary tract symptoms; M10.9 Gout, unspecified | CPT/HCPCS: 80053; 80061; 84443; 84550; 85025; G0103 ==

== ENCOUNTER → 2024-01-14 10:44 | Outpatient (BNVA) | payer BC, SELFPAY | PROVIDERS: PCP Family Medicine; Visit Provider Family Medicine | DX: I10 Essential (primary) hypertension (principal); E78.2 Mixed hyperlipidemia; M10.9 Gout, unspecified | CPT/HCPCS: 80053; 80061; 84443; 84550; 85025 ==

== ENCOUNTER 2024-04-13 12:31 | Outpatient (CLI) | payer BC, SELFPAY ==
--- NOTE | 2024-04-13 12:34 | USCV_ITS ---
Eulogio Linton Age: 64 Gender: M : 1960 Exam Date: 04/13/2024 12:42 Ordering Phys: Rl Bae MD Technologist: [place] [facility] [place]: cp sob BP: 130 / 7 HR: 53 Rhythm: Sinus Technical Quality: Adequate MEASUREMENTS (Male / Female) Normal Values 2D ECHO LV Diastolic Diameter PLAX 4.5 cm 4.2 - 5.9 / 3.9 - 5.3 cm IVS Diastolic Thickness 0.8 cm 0.6 - 1.0 / 0.6 - 0.9 cm IVS Systolic Thickness 1.7 cm LVPW Diastolic Thickness 1.2 cm 0.6 - 1.0 / 0.6 - 0.9 cm LVPW Systolic Thickness 0.8 cm LVOT Diameter 2.1 cm LV Ejection Fraction 2D Teich 65.5 % LV Ejection Fraction MOD 4C 55.0 % LV Ejection Fraction MOD 2C 69.1 % LV Ejection Fraction 2C AL 69.8 % LA Diameter 3.5 cm RA Systolic Volume 4C AL 35.1 ml RA Systolic Volume 4C MOD 33.7 ml Aorta at Sinotubular Diameter 3.2 cm IVC Diameter 2.5 cm M-MODE LA Ao Ratio MM 1.0 AV Cusp Separation MM 2.5 cm DOPPLER AV Peak Velocity 140.0 cm/s LVOT Peak Velocity 108.0 cm/s AV Area Cont Eq vti 3.4 cm squared AV Area Cont Eq pk 2.6 cm squared MV Peak Velocity 104.0 cm/s MV Area PHT 2.8 cm squared Mitral E to A Ratio 1.1 TV Peak Velocity 196.5 cm/s TR Peak Velocity 203.0 cm/s TR Peak Gradient 16.5 mmHg TV Peak E Velocity 96.0 cm/s Right Atrial Pressure 3.0 mmHg Pulmonary Artery Systolic Pressu 19.5 mmHg PV Peak Velocity 104.0 cm/s FINDINGS Left Ventricle Normal left ventricular size, systolic function and wall thickness, with no regional wall motion abnormalities. Left ventricular ejection fraction is estimated at 60 %. Grade I/IV diastolic dysfunction (abnormal relaxation filling pattern), normal to mildly elevated filling pressures. Right Ventricle The right ventricle is normal in size and function. Right Atrium The right atrium is normal in size. Left Atrium The left atrium is normal in size. Mitral Valve Structurally normal mitral valve without significant stenosis or prolapse. There is no mitral regurgitation. Aortic Valve Structurally normal aortic valve without significant sclerosis or stenosis. There is no aortic regurgitation. Tricuspid Valve Structurally normal tricuspid valve without significant stenosis or regurgitation. Pulmonary artery systolic pressure is normal. Pulmonic Valve Structurally normal pulmonic valve without significant stenosis. There is no pulmonic regurgitation. Pericardium Normal pericardium without effusion. Aorta Normal ascending aorta dimension. IVC The inferior vena cava appears normal. CONCLUSIONS CONCLUSIONS: 1. Normal left ventricular size, systolic function and wall thickness, with no regional wall motion abnormalities. Left ventricular ejection fraction is estimated at 60 %. Normal left ventricular wall thickness. Normal diastolic filling pattern. 2. No significant chamber abnormalities. 3. No sigificant valve abnormalities. 4. There is no pericardial effusion. 5. There are no intracardiac masses. 6. Pulmonary artery systolic pressure is within normal limits. 7. Right atrial pressure is around 5 mm of mercury. 8. There are no prior echocardiogram studies to compare. Jennifer Osei MD (Electronically Signed) Final Date: 13 April 2024 19:01 S
== END 2024-04-13 12:32 | disposition home or self-care (01) ==
LOC: RAD 12:32
PROVIDERS: PCP Internal Medicine; Visit Provider Internal Medicine
DX: I50.30 Unspecified diastolic (congestive) heart failure (principal); R60.9 Edema, unspecified
CPT/HCPCS: 93306

== ENCOUNTER 2025-01-21 13:08 | Outpatient (CLI) | payer BC, SELFPAY ==
--- NOTE | 2025-01-21 13:17 | USCV_ITS ---
Eulogio Linton Age: 64 Gender: M : 1960 Exam Date: 01/21/2025 13:33 Ordering Phys: Rl Bae MD Technologist: Cesar Bhatia Exam Location: [facility] – [place] Indication: unilateral edema of lower extremity PROCEDURES: Venous duplex imaging was performed in only the right lower extremity. The following venous structures were evaluated: common femoral vein, profunda vein, proximal portion of the greater saphenous vein, superficial femoral vein, and the popliteal vein. In addition, the posterior tibial and peroneal trunk were evaluated. Serial compression, augmentation maneuvers, and spectral Doppler flow evaluation were performed. FINDINGS: Normal 2-D Doppler and augmentation and compressibility throughout the lower extremity venous structures. Additional imaging through the proximal calf veins also reveals no thrombus. Limited evaluation of the greater saphenous vein is patent with no thrombus. CONCLUSIONS No DVT right lower extremity. Dr. Libra Doyle DO (Electronically Signed) Final Date: 21 January 2025 15:59 S
== END 2025-01-21 13:09 | disposition home or self-care (01) ==
LOC: RAD 13:10
PROVIDERS: PCP Internal Medicine; Visit Provider Internal Medicine
DX: R60.0 Localized edema (principal)
CPT/HCPCS: 93971